=== PATIENT | female | born 1985 | race Caucasian/White ===

== ENCOUNTER 2020-05-12 05:45 | Inpatient (IN) | payer BC ==
[~2020-05-12] VITALS: Ht 144.8 cm; Wt 87.7 kg
[2020-05-12 05:58] VITALS: BP 114/83
[2020-05-12] MEDS ORDERED: METOCLOPRAMIDE 5 MG/ML, 2ML IV ONE (06:00)
[2020-05-12] MEDS ORDERED: LACTATED RINGERS 1,000 ML IVBOLUS ONE (06:00)
[2020-05-12] MEDS ORDERED: SODIUM CITRATE/CITRIC ACID 30 ML UDC PO ONE (06:00)
[2020-05-12] MEDS ORDERED: NEWBORN KIT ONE (06:03)
[2020-05-12] MEDS ORDERED: SODIUM CITRATE/CITRIC ACID 30 ML UDC ONE (06:17)
[2020-05-12] MEDS ORDERED: METOCLOPRAMIDE 5 MG/ML, 2ML ONE (06:17)
[2020-05-12 06:31] LABS: BASOPHILS # (AUTO) 0.03 x10^3/uL (0-0.1); BASOPHILS % (AUTO) 0 % (0-1); EOSINOPHILS # (AUTO) 0.09 x10^3/uL (0-0.4); EOSINOPHILS % (AUTO) 1 % (1-7); LYMPHOCYTES # (AUTO) 1.46 x10^3/uL (1-3.4); LYMPHOCYTES % (AUTO) 22 % (22-44); MD NO; MEAN CORPUSCULAR HEMOGLOBIN 27.8 pg (27.0-34.8); MEAN CORPUSCULAR HGB CONC 32.6 g/dL (32.4-35.8); MEAN CORPUSCULAR VOLUME 85.3 fL (80-100); MEAN PLATELET VOLUME 8.6 fL (7.4-10.4); MONOCYTES # (AUTO) 0.39 x10^3/uL (0.2-0.8); MONOCYTES % (AUTO) 6 % (2-9); NEUTROPHILS # (AUTO) 4.73 x10^3/uL (1.8-6.8); NEUTROPHILS % (AUTO) 71 % (42-75); PLATELET COUNT 193 x10^3/uL (130-400); RED BLOOD COUNT 4.07 x10^6/uL (3.82-5.3); RED CELL DISTRIBUTION WIDTH 19.3 % (9.6-15.2)
[2020-05-12] MEDS: LACTATED RINGERS 1,000 ML IV SCH ×5 (07:27→23:27)
[2020-05-12] MEDS ORDERED: CALCIUM CARBONATE 500 MG TAB.CHEW PO PRN (07:30)
[2020-05-12] MEDS ORDERED: ACETAMINOPHEN 325 MG TABLET PO PRN ×2 (07:30)
[2020-05-12] MEDS ORDERED: OXYcodone/APAP 5/325MG TABLET PO PRN (07:30)
[2020-05-12] MEDS ORDERED: MEASLES,MUMPS&RUBELLA VACC/PF 0.5 ML SQ-VACC PRN (07:30)
[2020-05-12] MEDS ORDERED: ONDANSETRON 2MG/ML, 2ML IV PRN (07:30)
[2020-05-12] MEDS ORDERED: IBUPROFEN 600 MG TABLET PO PRN (07:30)
[2020-05-12] MEDS ORDERED: DIPH,PERTUSS(ACELL),TET VAC/PF NC IM-VACC PRN (07:30)
[2020-05-12] MEDS ORDERED: MORPHINE SULFATE 4 MG/ML, 1ML IVPush PRN ×2 (07:30→10:30)
[2020-05-12] MEDS ORDERED: SIMETHICONE 80 MG CHEW TAB PO PRN (07:30)
[2020-05-12] MEDS ORDERED: MISOPROSTOL 200 MCG TABLET PR PRN (07:30)
[2020-05-12] MEDS: KETOROLAC 30 MG/1 ML IV SCH ×3 (07:30→19:30)
[2020-05-12] MEDS ORDERED: morphine SULFATE/PF 0.5 MG/ML, 10ML ONE (07:31)
[2020-05-12] MEDS ORDERED: PHENYLEPHRINE 10 MG/ML ONE (07:40)
[2020-05-12] MEDS ORDERED: SODIUM CHLORIDE 0.9% PF 10ML ONE (07:40)
[2020-05-12] MEDS ORDERED: KETOROLAC 30 MG/1 ML ONE (07:40)
[2020-05-12] MEDS ORDERED: CEFAZOLIN 1,000 MG ONE (07:40)
[2020-05-12] MEDS ORDERED: OXYTOCIN 10 UNITS/ML, 1ML ONE (07:40)
[2020-05-12] MEDS ORDERED: WATER-INJECTION,STERILE 10 ML IV ONE (07:40)
[2020-05-12] MEDS ORDERED: ONDANSETRON 2MG/ML, 2ML ONE (07:40)
[2020-05-12] MEDS ORDERED: DEXAMETHASONE 4 MG/ML, 1ML ONE (07:40)
[2020-05-12] MEDS ORDERED: FENTANYL PF 100 MCG/2ML ONE (08:03)
[2020-05-12] MEDS ORDERED: MIDAZOLAM 1 MG/ML, 2ML ONE (08:03)
[2020-05-12] MEDS: PRENATAL VIT/IRON/FA 1 EACH TABLET PO SCH (09:00)
[2020-05-12] MEDS ORDERED: OXYTOCIN 30U/ 0.9% NaCL 500ML 500 ML ONE (09:09)
[2020-05-12] MEDS ORDERED: OXYcodone 5 MG/5 ML ORAL.SOL UDC ONE (09:09)
[2020-05-12] MEDS: OXYTOCIN 30U/ 0.9% NaCL 500ML 500 ML IV SCH ×2 (09:24→17:27)
[2020-05-12] MEDS ORDERED: OXYcodone 5 MG/5 ML ORAL.SOL UDC PO PRN (09:30)
[2020-05-12] MEDS ORDERED: MORPHINE SULFATE 4 MG/ML, 1ML ONE (10:06)
[2020-05-12 11:00] VITALS: BP 114/70
[2020-05-12 15:31] LABS: MEAN CORPUSCULAR HGB CONC 32.6 g/dL (32.4-35.8); MEAN PLATELET VOLUME 8.9 fL (7.4-10.4); PLATELET COUNT 181 x10^3/uL (130-400); RED BLOOD COUNT 3.71 x10^6/uL (3.82-5.3)
[2020-05-12] MEDS: OXYcodone/APAP 5/325MG TABLET PO PRN ×2 (16:12→21:57)
[2020-05-12 16:15] LABS: MD YES
[2020-05-12 16:17] LABS: ANISOCYTOSIS 1+; BAND#(MANUAL) 0.69 x10^3/uL; BANDS%(MANUAL) 6 % (0-7); LYMPH#(MANUAL) 0.35 x10^3/uL (1-3.4); LYMPHS% (MANUAL) 3 % (22-44); MONOS#(MANUAL) 0.12 x10^3/uL (0.3-2.7); MONOS% (MANUAL) 1 % (2-9); SEG#(MANUAL) 10.35 x10^3/uL (1.8-6.8); SEGS% (MANUAL) 90 % (42-75)
[2020-05-12 16:18] LABS: <PLATELET ESTIMATE> ADEQUATE; GIANT PLATELETS 1+
[2020-05-12 17:00] VITALS: BP 123/82
[2020-05-12 20:22] VITALS: BP 132/73
[2020-05-12 23:33] VITALS: BP 128/78
[2020-05-13] MEDS: KETOROLAC 30 MG/1 ML IV SCH ×4 (01:42→19:38)
[2020-05-13] MEDS: OXYTOCIN 30U/ 0.9% NaCL 500ML 500 ML IV SCH (03:26)
[2020-05-13] MEDS: LACTATED RINGERS 1,000 ML IV SCH (03:26)
[2020-05-13 04:18] VITALS: BP 103/66
[2020-05-13 07:45] VITALS: BP 103/66
[2020-05-13] MEDS: PRENATAL VIT/IRON/FA 1 EACH TABLET PO SCH (11:37)
[2020-05-13] MEDS: DOCUSATE 100 MG CAPSULE PO PRN (11:38)
[2020-05-13] MEDS: OXYcodone/APAP 5/325MG TABLET PO PRN ×2 (13:08→18:21)
[2020-05-13 19:15] VITALS: BP 104/67
[2020-05-14] MEDS: KETOROLAC 30 MG/1 ML IV SCH (02:07)
[2020-05-14] MEDS ORDERED: IBUPROFEN 600 MG TABLET PO PRN (07:30)
[2020-05-14] MEDS: DOCUSATE 100 MG CAPSULE PO PRN (07:32)
[2020-05-14] MEDS: PRENATAL VIT/IRON/FA 1 EACH TABLET PO SCH (07:32)
[2020-05-14 07:58] VITALS: BP 106/71
== END 2020-05-14 11:15 | disposition home or self-care (01) | DRG 785 ==
LOC: LDIP 05:45 → 2NW 10:42
PROVIDERS: ADMIT Obstetrics & Gynecology; ATTEND Obstetrics & Gynecology
PROC: 10D00Z1 Extraction of Products of Conception, Low, Open Approach (ICD-10-PCS; principal; 2020-05-12)
PROC: 0UT70ZZ Resection of Bilateral Fallopian Tubes, Open Approach (ICD-10-PCS; 2020-05-12)
DX: O34.211 Maternal care for low transverse scar from previous cesarean delivery (principal); O40.3XX0 Polyhydramnios, third trimester, not applicable or unspecified; O24.429 Gestational diabetes mellitus in childbirth, unspecified control; O99.824 Streptococcus B carrier state complicating childbirth; Z3A.39 39 weeks gestation of pregnancy; Z37.0 Single live birth; Z64.1 Problems related to multiparity; Z30.2 Encounter for sterilization
CPT/HCPCS: 36415; 82803; 85025; 86592; 86850; 86900; 88302; G0378; J0690; J1100; J1885; J2250; J2274; J2405; J3010; J2270; J2370; J2590; J2765; J7120